=== PATIENT | female | born 1955 | race Two or more races ===

== ENCOUNTER → 2017-01-13 | Outpatient (REF) | payer OTHER ==
[~2017-01-13] MED LIST: /AUGM875TA; /CELE20CA; ATOR1TAB19 PO; BUPR1TAB53 PO; DYAZ37.5; FLAG500T; LEVA500T; LEVO88TA24 PO; LISI10TA4 PO; PANT40TA2 PO; PERC5TAB8; SYNT112T; TRIC145T19; VYTO10TA5; WELL75TA
== END ==
LOC: M LAB REF 19:01
PROVIDERS: ATTEND Physician Assistant
DX: R30.0 Dysuria (principal)

== ENCOUNTER → 2017-02-28 | Outpatient (CLI) | payer OTHER ==
--- NOTE | 2017-03-06 09:00 | REPMRS ---
Patient History The patient states she had a clinical breast exam in 02/2017. Family history of endometrial cancer in sister at age 62, unknown cancer in sister at age 25, colorectal cancer in mother at age 68, and colorectal cancer in maternal uncle at age 60. Taking unspecified hormones for 3 years. Digital Woman Screen Mammo: February 28, 2017 - Exam #: [id number] Bilateral CC and MLO view(s) were taken. Technologist: Paris Toledo, Technologist Prior study comparison: October 22, 2015, digital bilateral screening mammo, performed at [facility]. October 16, 2014, digital bilateral screening mammo, performed at [facility]. August 26, 2013, digital bilateral screening mammo, performed at [facility]. FINDINGS: There are scattered fibroglandular densities. There has been no change in the appearance of the mammogram from the prior studies. There is a mild amount of scattered fibroglandular density which is fairly symmetric. There is no interval development of dominant mass, architectural distortion, or clustered microcalcification suggestive of malignancy. ASSESSMENT: BI-RADS/ACR category 1 mammogram. Negative. Recommendation Routine screening mammogram in 1 year (for women over age 40). This mammogram was interpreted with the aid of an FDA-approved computer-aided dectection system. Electronically Signed By: Jose Cruz Bone MD 03/06/17 [id number]
== END ==
LOC: M WHC 08:20
PROVIDERS: ATTEND Nurse Practitioner Family
DX: Z12.31 Encounter for screening mammogram for malignant neoplasm of breast (principal)

== ENCOUNTER → 2018-03-14 | Outpatient (CLI) | payer OTHER | LOC: M WHC 08:39 | DX: Z12.31 Encounter for screening mammogram for malignant neoplasm of breast (principal) | CPT/HCPCS: 77067 ==

== ENCOUNTER → 2019-05-17 | Outpatient (CLI) | payer MEDICARE, OTHER ==
[~2019-05-17] MED LIST changes: -/CELE20CA; +CELE1CAP4; -PANT40TA2 PO; +PANT40TA3 PO
--- NOTE | 2019-05-17 14:07 | REPMRS ---
Patient History The patient states she had a clinical breast exam in May 2019.Family history of colorectal cancer at age 68 in mother, colorectal cancer at age 60 in maternal uncle, endometrial cancer at age 62 in sister, unknown cancer at age 25 in sister. Taking unspecified hormones for 4 years. Digital Woman Screen Mammo: May 17, 2019 - Exam #: [id number] Bilateral CC and MLO view(s) were taken. Technologist: Debra Berrios, Technologist Prior study comparison: March 14, 2018, bilateral digital woman screen mammo performed at [facility]. February 28, 2017, digital woman screen mammo performed at [facility]. October 22, 2015, digital bilateral screening mammo, performed at [facility]. FINDINGS: There are scattered fibroglandular densities. There has been no change in the appearance of the mammogram from the prior studies. There is a mild amount of scattered fibroglandular density which is fairly symmetric. There is no interval development of dominant mass, architectural distortion, or grouped microcalcification suggestive of malignancy. 3-D tomosynthesis shows no additional findings. Assessment: BI-RADS/ACR category 2 mammogram. Benign Findings. Recommendation Routine screening mammogram of both breasts in 1 year. This patient's Lifetime Breast Cancer RIsk is estimated at 5.8 %. This mammogram was interpreted with the aid of an FDA-approved computer-aided dectection system. Electronically Signed By: Jose Cruz Bone MD 05/17/19 [id number]
== END ==
LOC: M WHC 11:34
PROVIDERS: ATTEND Nurse Practitioner Family
DX: Z12.31 Encounter for screening mammogram for malignant neoplasm of breast (principal); Z80.0 Family history of malignant neoplasm of digestive organs; Z80.49 Family history of malignant neoplasm of other genital organs; Z80.8 Family history of malignant neoplasm of other organs or systems; Z92.29 Personal history of other drug therapy

== ENCOUNTER → 2020-11-20 | Outpatient (CLI) | payer MEDICARE, OTHER ==
[~2020-11-20] MED LIST changes: +LISI10TA22 PO; -LISI10TA4 PO; +LISI20TA33; +PANT40TA29 PO; -PANT40TA3 PO
== END ==
LOC: M LABSMTC 10:55
PROVIDERS: ATTEND Anesthesiology
DX: Z11.52 Encounter for screening for COVID-19 (principal)

== ENCOUNTER 2020-11-25 11:48 | Day surgery (SDC) | payer MEDICARE ==
[~2020-11-25] VITALS: Ht 170.2 cm; Wt 92.5 kg
[~2020-11-25 11:48] MED LIST changes: +NS 1,000 ML IV ONE
[2020-11-25] MEDS ORDERED: propofoL 200 MG/20 ML VIAL As Ordered ONE (12:25)
[2020-11-25] MEDS ORDERED: LIDOCAINE 2% 100MG/5ML SDV (FOR ANES.) As Ordered ONE (12:25)
[2020-11-25] MEDS ORDERED: LABETALOL 100MG/20ML VIAL As Ordered ONE (12:25)
--- NOTE | 2020-11-25 12:41 | ROOR ---
Patient Name: Mile Herrera Procedure Date: 11/25/2020 12:20 PM Date of : 1955 Age: 64 Room: [facility]AC, [facility]IN [facility] Gender: Female Note Status: Finalized Procedure: Total Colonoscopy to Cecum + Biopsy Polypectomy Indications: Colon cancer screening in patient at increased risk: Colorectal cancer in mother, High risk colon cancer surveillance: Personal history of colonic polyps Providers: Tanvir Wong MD Referring MD: DIAMOND STEVEN Requesting Provider: Medicines: Monitored Anesthesia Care Complications: No immediate complications. Procedure: Pre-Anesthesia Assessment: - The heart rate, respiratory rate, oxygen saturations, blood pressure, adequacy of pulmonary ventilation, and response to care were monitored throughout the procedure. The Colonoscope was introduced through the anus and advanced to the ileocecal valve. The colonoscopy was performed without difficulty. The patient tolerated the procedure well. The quality of the bowel preparation was excellent. Findings: The perianal and digital rectal examinations were normal. Non-bleeding internal hemorrhoids were found during retroflexion. The hemorrhoids were small and Grade I (internal hemorrhoids that do not prolapse). Scattered small-mouthed diverticula were found in the recto-sigmoid colon, sigmoid colon and descending colon. A diminutive polyp was found in the cecum. The polyp was sessile. The polyp was removed with a cold biopsy forceps. Resection and retrieval were complete. The exam was otherwise without abnormality on direct and retroflexion views. Impression: - Non-bleeding internal hemorrhoids. - Diverticulosis in the recto-sigmoid colon, in the sigmoid colon and in the descending colon. - One diminutive polyp in the cecum, removed with a cold biopsy forceps. Resected and retrieved. - The examination was otherwise normal on direct and retroflexion views. - The exam was otherwise normal to the cecum. Recommendation: - Patient has a contact number available for emergencies. The signs and symptoms of potential delayed complications were discussed with the patient. Return to normal activities tomorrow. Written discharge instructions were provided to the patient. - High fiber diet. - Discharge patient to home. - Continue present medications. - Await pathology results. - Telephone GI clinic for pathology results in 1 week. - Repeat colonoscopy in 5 years for surveillance based on pathology results. - Return to referring physician. - The findings and recommendations were discussed with the patient's family. Procedure Code(s): --- Professional --- 08783, Colonoscopy, flexible; with biopsy, single or multiple Diagnosis Code(s): --- Professional --- Z80.0, Family history of malignant neoplasm of digestive organs Z86.010, Personal history of colonic polyps K64.0, First degree hemorrhoids K63.5, Polyp of colon K57.30, Diverticulosis of large intestine without perforation or abscess without bleeding CPT copyright 2019 [employer]. All rights reserved. The codes documented in this report are preliminary and upon soil sort worker review may be revised to meet current compliance requirements. Tanvir Wong MD Tanvir Wong MD 11/25/2020 12:40:49 PM Electronically signed by Tanvir Wong MD Number of Addenda: 0 Note Initiated On: 11/25/2020 12:20 PM Estimated Blood Loss: Estimated blood loss: none.
[2020-11-25 13:09] VITALS: BP 111/57
== END 2020-11-25 13:13 | disposition home or self-care (01) ==
LOC: M OPP 11:48
PROVIDERS: ATTEND Internal Medicine Gastroenterology
DX: Z12.11 Encounter for screening for malignant neoplasm of colon (principal); Z86.010 Personal history of colon polyps; Z80.0 Family history of malignant neoplasm of digestive organs; D12.0 Benign neoplasm of cecum; K57.30 Diverticulosis of large intestine without perforation or abscess without bleeding; K64.0 First degree hemorrhoids; Z79.899 Other long term (current) drug therapy

== ENCOUNTER → 2021-03-03 | Outpatient (CLI) | payer MEDICARE ==
[~2021-03-03] MED LIST changes: -NS 1,000 ML IV ONE
--- NOTE | 2021-03-03 12:47 | REP ---
INDICATION: ABDOMINAL DISTENSION. COMPARISON: None. TECHNIQUE: Transabdominal and transvaginal scanning performed. FINDINGS: There has been a prior hysterectomy. The bladder measures 7.6 x 5.5 x 7.3cm. No bladder mass or calculus is seen. The ovaries could not be visualized. There is no adnexal mass identified. No free fluid is seen in the cul-de-sac. IMPRESSION: Negative pelvic ultrasound. Prior hysterectomy. Ovaries could not be visualized. <Electronically signed by Saleem Bales > 03/03/21 [id number]
--- NOTE | 2021-03-03 13:01 | REPMRS ---
Patient History The patient states she had a clinical breast exam in February 2021. Family history of colorectal cancer at age 68 in mother, colorectal cancer at age 60 in maternal uncle, endometrial cancer at age 62 in sister, unknown cancer at age 25 in sister. Taking unspecified hormones for 4 years. Patient states no breast complaints today. Patient has signed MRS History Sheet. Digital Woman Screen Mammo: March 03, 2021 - Exam #: [id number] Bilateral CC and MLO view(s) were taken. Technologist: Laura Marin, Technologist Prior study comparison: May 17, 2019, bilateral digital woman screen mammo performed at [facility]. March 14, 2018, bilateral digital woman screen mammo performed at [facility]. FINDINGS: There are scattered fibroglandular densities. Screening. Digital screening (2D) mammography was performed bilaterally in the CC and MLO projections. Additionally, breast tomosynthesis (3D mammography) was performed bilaterally in the CC and MLO projections. Todays exam was compared to the prior exam/exams. By history, the patient has no complaints of a palpable breast abnormality or other significant breast complaints. The breasts are unchanged in size and shape. There are no devin-soft tissue densities or spiculated masses. There is no internal architectural distortion. There are no suspicious devin-calcific clusters. Skin thickening or nipple retraction is not present. IMPRESSION: BI-RADS Category 2- Benign Findings. There is no evidence of malignant alteration of the breasts. Followup examination recommended in one year. The Volpara volumetric breast density category is B, there are scattered areas of fibroglandular densities. This mammogram was read with the assistance of [facility],an FDA approved computer aided detection system for mammography. The lifetime Tyrer-Cuzick score is 5.2 % Negative x-ray reports should not delay surgical consultation if a dominant or clinically suspicious mass is present. Not all breast cancers can be identified by mammography. Therefore, we recommend that you continue to perform regular breast self-examination and physical examination and then promptly contact your physician of any concerns or changes. Adenosis and dense breasts may obscure an underlying neoplasm. Assessment: BI-RADS/ACR category 2 mammogram. Benign Findings. Recommendation Routine screening mammogram of both breasts in 1 year. Electronically Signed By: Neto Hernandez 03/03/21 1300
== END ==
LOC: M WHC 11:44
PROVIDERS: ATTEND Advanced Practice Midwife
DX: R14.0 Abdominal distension (gaseous) (principal); Z90.710 Acquired absence of both cervix and uterus; Z12.31 Encounter for screening mammogram for malignant neoplasm of breast; Z80.8 Family history of malignant neoplasm of other organs or systems; Z80.49 Family history of malignant neoplasm of other genital organs

== ENCOUNTER → 2022-03-08 | Outpatient (CLI) | payer MEDICARE | LOC: M WHC 07:45 | PROVIDERS: ATTEND Family Medicine | DX: Z12.31 Encounter for screening mammogram for malignant neoplasm of breast (principal) ==

== ENCOUNTER → 2023-03-10 | Outpatient (CLI) | payer MEDICARE | LOC: M WHC 10:51 | PROVIDERS: ATTEND Physician Assistant | DX: Z12.31 Encounter for screening mammogram for malignant neoplasm of breast (principal) ==

== ENCOUNTER → 2024-03-11 | Outpatient (CLI) | payer MEDICARE | LOC: M WHC 10:11 | PROVIDERS: ATTEND Physician Assistant | DX: Z12.31 Encounter for screening mammogram for malignant neoplasm of breast (principal) ==